=== PATIENT | male | born 1990 | race African-American/Black ===

== ENCOUNTER 2023-10-16 19:00 | Emergency (ER) | payer SELFPAY ==
[2023-10-16] MEDS ORDERED: cloNIDine 0.1 MG TAB ONE (19:21)
[2023-10-16] MEDS ORDERED: Oxymetazoline HCl 0.05% (30 ML BOT) ONE (19:24)
[2023-10-16 19:47] LABS: #Eosinphils 0.1 thou/uL (0.0-0.7); #Monocytes 0.3 thou/uL (0.11-0.59); #Neutrophils 3.2 thou/uL (1.40-6.50); %Basophils 0.4 % (0.0-1.0); %Eosinophils 2.6 % (0.0-10.0); %Lymphocytes 25.3 % (21.0-51.0); %Monocytes 6.6 % (0.0-10.0); %Neutrophils 63.7 % (42.0-75.0); Hemoglobin 15.8 g/dL (14.0-18.0); Mean Corpuscular HGB CONC 35.1 g/dL (32.0-36.0); Mean Corpuscular Hemoglobin 31.7 pg (27.0-31.0); Mean Corpuscular Volume 90.4 fl (78.0-98.0); Mean Platelet Volume 9.9 fL (7.4-10.4); Platelet Count 130 10x3/uL (130-400); RBC Distribution Width 11.9 % (11.5-14.5); Red Blood Cell (RBC) Count 4.98 mill/uL (4.70-6.10)
[2023-10-16] MEDS ORDERED: Tranexamic Acid 1,000 MG/10 ML VIAL ONE (21:59)
== END 2023-10-16 22:27 | disposition home or self-care (01) ==
LOC: ERS 19:00
DX: R04.0 Epistaxis (principal); F17.290 Nicotine dependence, other tobacco product, uncomplicated; I10 Essential (primary) hypertension
CPT/HCPCS: 36415; 85025; 99283

== ENCOUNTER 2023-10-17 13:55 | Emergency (ER) | payer SELFPAY ==
[2023-10-17 15:10] LABS: #Basophils 0.1 thou/uL (0.0-0.2); #Eosinphils 0.1 thou/uL (0.0-0.7); #Monocytes 0.6 thou/uL (0.11-0.59); %Basophils 0.7 % (0.0-1.0); %Monocytes 7.3 % (0.0-10.0); %Neutrophils 69.6 % (42.0-75.0); Hematocrit 39.6 % (42.0-52.0); Mean Corpuscular HGB CONC 35.4 g/dL (32.0-36.0); Mean Corpuscular Hemoglobin 32.2 pg (27.0-31.0); Mean Platelet Volume 10.2 fL (7.4-10.4); Platelet Count 176 10x3/uL (130-400); RBC Distribution Width 11.8 % (11.5-14.5); Red Blood Cell (RBC) Count 4.35 mill/uL (4.70-6.10); White Blood Cell (WBC) Count 8.6 10x3/uL (4.8-10.8)
[2023-10-17 15:37] LABS: ALT (SGPT) 100 U/L (8-55); AST (SGOT) 68 U/L (5-34); Albumin 3.7 g/dL (3.5-5.0); Alkaline Phosphatase 71 U/L (40-110); Anion Gap 13 mmol/L (10-20); BUN (Urea Nitrogen) 16 mg/dL (8.9-20.6); Bilirubin, Total 1.1 mg/dL (0.2-1.2); Calc. Creatinine Clearance 0 mL/min (70-130); Carbon Dioxide 22 mmol/L (22-29); Chloride 101 mmol/L (98-107); Estimated GFR 118; Globulin 3.8 g/dL (2.4-3.5); Glucose 109 mg/dL (70-105); Potassium 3.5 mmol/L (3.5-5.1); Protein, Total 7.5 g/dL (6.0-8.3); Sodium 132 mmol/L (136-145)
[2023-10-17 15:39] LABS: Prothrombin Time 13.6 sec (12.0-14.7)
[2023-10-17 15:40] LABS: PTT 26.3 sec (22.9-36.1)
== END 2023-10-17 17:56 | disposition home or self-care (01) ==
LOC: ERS 13:55
DX: R04.0 Epistaxis (principal); I10 Essential (primary) hypertension; F17.290 Nicotine dependence, other tobacco product, uncomplicated
CPT/HCPCS: 30903; 36415; 80053; 85025; 85610; 85730